=== PATIENT | female | born 1990 | race American Indian/Alaskan Native ===

== ENCOUNTER 2019-05-16 11:23 | Emergency (ER) | payer OTHER ==
[2019-05-16 11:28] VITALS: BP 113/78
--- NOTE | 2019-05-16 11:35 | Emergency Department Report ---
Chief Complaint: Back Pain/Injury Stated Complaint: BACK PAIN Time Seen by Provider: 05/16/19 11:28 - HPI History of Present Illness: This is a 28 y.o. F. that presents to the ER with back pain. Patient states she injured her left upper back at work Sunday and sent to a Workman's Comp doctor and prescribed NSAIDs and muscle relaxers. Patient states she was diagnosed with a sprained back and x-rays where normal. Patient states she felt better taking medication but reports pain is worse across her entire upper back because she is using her RUE more than usual. 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 Patient states she is scheduled for PT and told her job she didn't want to come to the ER but brought here anyway. Denies numbness, tingling, change in urinary/bowel pattern, chest pain, radiating pain, swelling, bruising, or deformity. - ROS Review of Systems: Neck: bilateral neck pain - Exam Vital Signs: Vital Signs 05/16/19 11:27 Temperature 97.9 F Pulse Rate 63 Respiratory 16 Rate Blood Pressure 113/78 O2 Sat by Pulse 100 Oximetry Physical Exam: Neck: muscle spasm palpated right trapezium muscle, no midline tenderness, no step off, no obvious deformity. MSE screening note: Focused history and physical exam performed. Due to findings the following was ordered: ED Medical Decision Making - Medical Decision Making This is a 28 y.o. F. that presents with upper back pain. Patient states pain has resolved. A muscle spasm was palpated at right trapezium muscle, no midline tenderness, no step off, no obvious deformity. Patient is under workman's comp doctor for injuring left cervical spine this week. This is a non-emergent complaint. Instructed to continue taking NSAIDs and muscle relaxers prescribed by workman's comp. Keep scheduled appointment with PT. Patient given strict return instructions. Patient discharged home stable. [place] [facility] [place] MED SCREENING EXAM-LEFT Is pt being admited?: No Condition: Stable Instructions: Arthralgia (ED) Additional Instructions: Return to the ER with worsening symptoms such as change in urinary or bowel pattern, numbness or tingling, and uncontrollable pain. Referrals: GEO GONZALES MD [Staff Physician] - 3-5 Days KENTRELL REYES MD [Staff Physician] - 3-5 Days AIDEE MARTINEZ MD [Staff Physician] - 3-5 Days [facility] [Outside] - 3-5 Days Forms: Work/School Release Form(ED), Accompanied Note Time of Disposition: 11:46
--- NOTE | 2019-05-16 13:02 | Emergency Department Report ---
ED Back Pain/Injury HPI - General Chief Complaint: Back Pain/Injury Stated Complaint: BACK PAIN Time Seen by Provider: 05/16/19 11:28 Source: patient, EMS Limitations: No Limitations - History of Present Illness Initial Comments: This is a 28 y.o. F. that presents to the ER with back pain. Patient states she injured her left upper back at work Sunday and sent to a Workman's Comp doctor and prescribed NSAIDs and muscle relaxers. Patient states she was diagnosed with a sprained back and x-rays where normal. Patient states she felt better taking medication but reports pain is worse across her entire upper back because she is using her RUE more than usual. 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 Patient states she is scheduled for PT and told her job she didn't want to come to the ER but brought here anyway. Denies numbness, tingling, change in urinary/bowel pattern, chest pain, radiating pain, swelling, bruising, or deformity. MD Complaint: back pain Onset/Timin -: days(s) Similar Symptoms Previously: Yes Place: work Radiation: none Severity: mild Severity scale (0 -10): 0 Quality: aching Consistency: now resolved Associated Symptoms: denies: numbness, difficulty urinating, incontinence, fever/chills Treatments Prior to Arrival: NSAIDS, other (muscle relaxer) - Related Data Allergies Allergy/AdvReac Type Severity Reaction Status Date / Time sulfamethoxazole Allergy Unknown Verified 05/16/19 11:27 [From Bactrim] trimethoprim [From Bactrim] Allergy Unknown Verified 05/16/19 11:27 meperidine [From Demerol] AdvReac Unknown Verified 05/16/19 11:34 ED Review of Systems ROS: Stated complaint: BACK PAIN Other details as noted in HPI Constitutional: denies: chills, fever Respiratory: denies: cough, shortness of breath, wheezing Cardiovascular: denies: chest pain, palpitations Musculoskeletal: back pain (upper back pain). denies: joint swelling, arthralgia Skin: denies: rash, lesions Neurological: denies: headache, weakness, paresthesias Psychiatric: denies: anxiety, depression ED Back Pain Physical Exam - Exam General: Vital signs noted. No distress. Alert and acting appropriately. Back/Abdomen: Yes Perilumbar Tenderness (muscle spasm palpated right trapezium muscle, no midline tenderness, no step off, no obvious deformity.), No Abdominal Tenderness, No Perithoracic Tenderness, No Sacroiliac Tenderness, No Flank Tenderness, No Straight Leg Raise Pain Neuro: Yes Normal Sensation, Yes Normal DTR's, Yes Normal Gait, No Motor Weakness ED Course Vital Signs 05/16/19 11:27 Temperature 97.9 F Pulse Rate 63 Respiratory 16 Rate Blood Pressure 113/78 O2 Sat by Pulse 100 Oximetry ED Medical Decision Making - Lab Data Lab Results 05/16/19 Range/Units Unknown Urine Opiates Screen Presumptive negative Urine Methadone Screen Presumptive negative Ur Barbiturates Screen Presumptive negative Ur Phencyclidine Scrn Presumptive negative Ur Amphetamines Screen Presumptive negative U Benzodiazepines Scrn Presumptive negative Urine Cocaine Screen Presumptive negative U Marijuana (THC) Screen Presumptive negative Drugs of Abuse Note Disclamer - Medical Decision Making This is a 28 y.o. F. that presents with upper back pain. Patient states pain has resolved. A muscle spasm was palpated at right trapezium muscle, no midline tenderness, no step off, no obvious deformity. Patient is under [employer] comp doctor for injuring left cervical spine this week. This is a non-emergent complaint. Patient job requested drug screen for clearance to return back to work. UDS obtained and negative. Instructed to continue taking NSAIDs and muscle relaxers prescribed by [employer] comp. Keep scheduled appointment with PT. Patient given strict return instructions. Patient discharged home stable. Critical care attestation.: If time is entered above; I have spent that time in minutes in the direct care of this critically ill patient, excluding procedure time. ED Disposition Clinical Impression: Back pain due to injury, Cervical paraspinal muscle spasm Disposition: -01 TO HOME OR SELFCARE Is pt being admited?: No Condition: Stable Instructions: Arthralgia (ED), Muscle Spasm (ED) Additional Instructions: Return to the ER with worsening symptoms such as change in urinary or bowel pattern, numbness or tingling, and uncontrollable pain. Referrals: [facility] [Outside] - 3-5 Days GEO GONZALES MD [Staff Physician] - 3-5 Days AIDEE MARTINEZ MD [Staff Physician] - 3-5 Days KENTRELL REYES MD [Staff Physician] - 3-5 Days Forms: Accompanied Note, Work/School Release Form(ED) Time of Disposition: 13:31
[2019-05-16 13:18] LABS: Amphetamine Screen,Urine PRESUMPTIVE NEGATIVE; Benzodiazepines Screen,Urine PRESUMPTIVE NEGATIVE; Cannabinoid Screen,Urine PRESUMPTIVE NEGATIVE; Cocaine Screen,Urine PRESUMPTIVE NEGATIVE; Methadone Screen,Urine PRESUMPTIVE NEGATIVE; Opiate Screen,Urine PRESUMPTIVE NEGATIVE
== END 2019-05-16 13:34 | disposition home or self-care (01) ==
LOC: ED 11:23
DX: M54.6 Pain in thoracic spine (principal); M62.838 Other muscle spasm
CPT/HCPCS: 80307; 99283

== ENCOUNTER 2019-06-24 15:57 | Emergency (ER) | payer OTHER ==
[2019-06-24 16:49] VITALS: BP 118/76
--- NOTE | 2019-06-24 16:57 | Emergency Department Report ---
ED ENT HPI - General Chief complaint: Sore Throat Stated complaint: TONSILS SWELLING/CELINA Time Seen by Provider: 06/24/19 16:50 Source: patient Mode of arrival: Ambulatory Limitations: No Limitations - History of Present Illness Initial comments: This is a 28-year-old female nontoxic well in appearance with no signs of distress presents to the ED with complaint of sore throat. Patient denies any drooling or hoarseness. Patient denies any other symptoms. Denies any fever, chills, headache, nausea, vomiting, chest pain or SOB. Denies any other comp laints. MD complaint: sore throat -: days(s) Location: throat Severity: mild Severity scale (0 -10): 8 Quality: aching Consistency: constant Improves with: none Worsens with: swallowing Associated Symptoms: pain with swallowing, sore throat. denies: fever, cough, gum swelling, toothache, tinnitus, hearing loss, discharge from ear, rhinorrhea - Related Data Previous Rx's Medication Instructions Recorded Last Taken Type Amoxicillin/K Clav Tab [Augmentin 1 tab PO Q12HR #20 tab 06/24/19 Unknown Rx 875 mg] Ibuprofen [Motrin] 600 mg PO Q8H PRN #20 tablet 06/24/19 Unknown Rx Nystas/Diphen/Xyl Visc/Mylanta 15 ml MM Q6H PRN 5 Days ml 06/24/19 Unknown Rx [Magic Mouthwash] Allergies Allergy/AdvReac Type Severity Reaction Status Date / Time sulfamethoxazole Allergy Unknown Verified 05/16/19 11:27 [From Bactrim] trimethoprim [From Bactrim] Allergy Unknown Verified 05/16/19 11:27 meperidine [From Demerol] AdvReac Unknown Verified 05/16/19 11:34 ED Dental HPI - General Chief complaint: Sore Throat Stated complaint: TONSILS SWELLING/CELINA Time Seen by Provider: 06/24/19 16:50 Source: patient Mode of arrival: Ambulatory Limitations: No Limitations - Related Data Previous Rx's Medication Instructions Recorded Last Taken Type Amoxicillin/K Clav Tab [Augmentin 1 tab PO Q12HR #20 tab 06/24/19 Unknown Rx 875 mg] Ibuprofen [Motrin] 600 mg PO Q8H PRN #20 tablet 06/24/19 Unknown Rx Nystas/Diphen/Xyl Visc/Mylanta 15 ml MM Q6H PRN 5 Days ml 06/24/19 Unknown Rx [Magic Mouthwash] Allergies Allergy/AdvReac Type Severity Reaction Status Date / Time sulfamethoxazole Allergy Unknown Verified 05/16/19 11:27 [From Bactrim] trimethoprim [From Bactrim] Allergy Unknown Verified 05/16/19 11:27 meperidine [From Demerol] AdvReac Unknown Verified 05/16/19 11:34 ED Review of Systems ROS: Stated complaint: TONSILS SWELLING/CELINA Other details as noted in HPI Constitutional: denies: chills, fever Eyes: denies: eye pain, eye discharge, vision change ENT: throat pain. denies: ear pain Respiratory: denies: cough, shortness of breath, wheezing Cardiovascular: denies: chest pain, palpitations Endocrine: no symptoms reported Gastrointestinal: denies: abdominal pain, nausea, diarrhea Genitourinary: denies: urgency, dysuria, discharge Musculoskeletal: denies: back pain, joint swelling, arthralgia Skin: denies: rash, lesions Neurological: denies: headache, weakness, paresthesias Psychiatric: denies: anxiety, depression Hematological/Lymphatic: denies: easy bleeding, easy bruising ED Past Medical Hx - Past Medical History Previous Medical History?: Yes Hx Asthma: Yes - Surgical History Past Surgical History?: Yes Additional Surgical History: Left Ectopic - Social History Smoking Status: Never Smoker - Medications Home Medications: Home Medications Medication Instructions Recorded Confirmed Last Taken Type Amoxicillin/K Clav Tab [Augmentin 1 tab PO Q12HR #20 tab 06/24/19 Unknown Rx 875 mg] Ibuprofen [Motrin] 600 mg PO Q8H PRN #20 tablet 06/24/19 Unknown Rx Nystas/Diphen/Xyl Visc/Mylanta 15 ml MM Q6H PRN 5 Days ml 06/24/19 Unknown Rx [Magic Mouthwash] ED Physical Exam - General Limitations: No Limitations General appearance: alert, in no apparent distress - Head Head exam: Present: atraumatic, normocephalic - Expanded ENT Exam Expanded Ear exam: Present: normal external inspection Mouth exam: Present: normal external inspection. Absent: drooling, trismus, muffled voice Teeth exam: Present: normal inspection Throat exam: Positive: tonsillar erythema, tonsillomegaly (2+), tonsillar exudate, other (uvula midline). Negative: R peritonsillar mass, L peritonsillar mass - Neck Neck exam: Present: normal inspection, full ROM. Absent: tenderness, meningismus, lymphadenopathy - Respiratory Respiratory exam: Present: normal lung sounds bilaterally. Absent: respiratory distress, wheezes, rales, rhonchi, stridor, chest wall tenderness, accessory muscle use, decreased breath sounds, prolonged expiratory - Cardiovascular Cardiovascular Exam: Present: regular rate, normal rhythm, normal heart sounds. Absent: irregular rhythm, systolic murmur, diastolic murmur, rubs, gallop - Extremities Exam Extremities exam: Present: full ROM - Back Exam Back exam: Present: full ROM - Neurological Exam Neurological exam: Present: alert, oriented X3, normal gait - Skin Skin exam: Present: warm, dry, intact, normal color. Absent: rash ED Course Vital Signs 06/24/19 06/24/19 16:48 16:49 Temperature 99.0 F Pulse Rate 110 H Respiratory 20 Rate Blood Pressure 118/76 O2 Sat by Pulse 100 Oximetry - Reevaluation(s) Reevaluation #1: 06/24/19 16:53 Patient is speaking in full sentences with no signs of distress noted. ED Medical Decision Making - Medical Decision Making Patient was instructed to Follow-up with a primary care doctor in 3-5 days or if symptoms worsen and continue return to emergency room as soon as possible. At time of discharge, the patient does not seem toxic or ill in appearance. No acute signs of distress noted. Patient agrees to discharge treatment plan of care. No further questions noted by the patient. Critical care attestation.: If time is entered above; I have spent that time in minutes in the direct care of this critically ill patient, excluding procedure time. ED Disposition Clinical Impression: Tonsillitis with exudate Disposition: DC-01 TO HOME OR SELFCARE Is pt being admited?: No Does the pt Need Aspirin: No Condition: Stable Instructions: Tonsillitis (ED) Additional Instructions: Follow-up with a primary care doctor in 3-5 days or if symptoms worsen and continue return to emergency room as soon as possible. Prescriptions: Amoxicillin/K Clav Tab [Augmentin 875 mg] 1 tab PO Q12HR #20 tab Nystas/Diphen/Xyl Visc/Mylanta [Magic Mouthwash] 15 ml MM Q6H PRN 5 Days ml PRN Reason: Sore Throat Ibuprofen [Motrin] 600 mg PO Q8H PRN #20 tablet PRN Reason: Pain Referrals: PRIMARY CAREMD [Referring] - 3-5 Days GEO GONZALES MD [Staff Physician] - 3-5 Days Forms: Work/School Release Form(ED)
== END 2019-06-24 22:40 | disposition home or self-care (01) ==
LOC: ED 15:57
DX: J03.80 Acute tonsillitis due to other specified organisms (principal); J45.909 Unspecified asthma, uncomplicated; Z98.890 Other specified postprocedural states; Z79.1 Long term (current) use of non-steroidal anti-inflammatories (NSAID); Z79.2 Long term (current) use of antibiotics; Z79.899 Other long term (current) drug therapy
CPT/HCPCS: 99282

== ENCOUNTER 2020-02-05 15:51 | Emergency (ER) | payer OTHER ==
[2020-02-05 16:36] VITALS: BP 109/68
[2020-02-05] MEDS ORDERED: oxyCODONE /ACETAMINOPHEN 5-325MG TAB PO ONE (20:37)
[2020-02-05] MEDS ORDERED: DIPHtheria,PERTUSSIS(ACELL),TETANUS VACCINE/PF 0.5 ML VIAL IM ONE (20:37)
--- NOTE | 2020-02-05 21:25 | XRay Report ---
LEFT FINGER(S) 3 VIEW(S) INDICATION / CLINICAL INFORMATION: slammed finger in door, distal pain/swelling COMPARISON: None available. FINDINGS: BONES / JOINT(S): Tiny ossific fragments at the distal long finger (third finger) terminal tuft likel y representing tiny acute chip fractures. No large displaced fracture. No dislocation. No significant arthritis. SOFT TISSUES: Moderate swelling at the distal long finger. ADDITIONAL FINDINGS: None. IMPRESSION: 1. Tiny chip fractures at the terminal tuft of the long finger (third finger) with moderate adjacent swelling. Correlate for nail bed injury. Signer Name: Gerardo Johnson MD Signed: 02/05/2020 9:21 PM Workstation Name: [id number]
[2020-02-05] MEDS ORDERED: ceFAZolin 1 GM VIAL IM ONE (21:30)
--- NOTE | 2020-02-05 21:38 | Emergency Department Report ---
ED General Adult HPI - General Chief complaint: Extremity Injury, Upper Stated complaint: LT FINGER SLAMMED IN DOOR Time Seen by Provider: 02/05/20 20:10 Source: patient Mode of arrival: Ambulatory Limitations: No Limitations - History of Present Illness Initial comments: 29-year-old -[place] female presents with complaints of left finger pain and laceration after slamming her finger in a door today. She rates her pain as 10/10 in severity and describes the pain as throbbing. She is unsure of her last tetanus vaccination. She denies any numbness/tingling/weakness or decreased range of motion of the finger. Severity scale (0 -10): 9 - Related Data Previous Rx's Medication Instructions Recorded Last Taken Type Amoxicillin/K Clav Tab [Augmentin 1 tab PO Q12HR #20 tab 06/24/19 Unknown Rx 875 mg] Ibuprofen [Motrin] 600 mg PO Q8H PRN #20 tablet 06/24/19 Unknown Rx Nystas/Diphen/Xyl Visc/Mylanta 15 ml MM Q6H PRN 5 Days ml 06/24/19 Unknown Rx [Magic Mouthwash] Acetaminophen/Codeine [Tylenol 1 tab PO Q6H PRN #8 tab 02/05/20 Unknown Rx /Codeine # 3 tab] Ibuprofen [Motrin 800 MG tab] 800 mg PO Q8HR PRN #20 tablet 02/05/20 Unknown Rx cephALEXin [Keflex] 500 mg PO Q8HR 7 Days #21 cap 02/05/20 Unknown Rx Allergies Allergy/AdvReac Type Severity Reaction Status Date / Time sulfamethoxazole Allergy Unknown Verified 05/16/19 11:27 [From Bactrim] trimethoprim [From Bactrim] Allergy Unknown Verified 05/16/19 11:27 meperidine [From Demerol] AdvReac Unknown Verified 05/16/19 11:34 ED Review of Systems ROS: Stated complaint: LT FINGER SLAMMED IN DOOR Other details as noted in HPI ED Past Medical Hx - Past Medical History Hx Asthma: Yes - Surgical History Additional Surgical History: Left Ectopic - Social History Smoking Status: Never Smoker - Medications Home Medications: Home Medications Medication Instructions Recorded Confirmed Last Taken Type Amoxicillin/K Clav Tab [Augmentin 1 tab PO Q12HR #20 tab 06/24/19 Unknown Rx 875 mg] Ibuprofen [Motrin] 600 mg PO Q8H PRN #20 tablet 06/24/19 Unknown Rx Nystas/Diphen/Xyl Visc/Mylanta 15 ml MM Q6H PRN 5 Days ml 06/24/19 Unknown Rx [Magic Mouthwash] Acetaminophen/Codeine [Tylenol 1 tab PO Q6H PRN #8 tab 02/05/20 Unknown Rx /Codeine # 3 tab] Ibuprofen [Motrin 800 MG tab] 800 mg PO Q8HR PRN #20 tablet 02/05/20 Unknown Rx cephALEXin [Keflex] 500 mg PO Q8HR 7 Days #21 cap 02/05/20 Unknown Rx ED Physical Exam - General Limitations: No Limitations General appearance: alert, in no apparent distress - Head Head exam: Present: atraumatic, normocephalic - Respiratory Respiratory exam: Absent: respiratory distress - Cardiovascular Cardiovascular Exam: Present: regular rate - Extremities Exam Extremities exam: Present: other (Bruising and mild swelling noted to distal aspect of left middle finger with a small less than 1 cm laceration noted. No obvious foreign bodies. Nail is intact.) - Neurological Exam Neurological exam: Present: alert, oriented X3 - Psychiatric Psychiatric exam: Present: normal affect, normal mood - Skin Skin exam: Present: warm, dry, normal color, ecchymosis. Absent: rash ED Course Vital Signs 02/05/20 16:32 Temperature 98.7 F Pulse Rate 74 Respiratory 18 Rate Blood Pressure 109/68 O2 Sat by Pulse 99 Oximetry - Laceration /Wound Repair Finger Wound Length (cm): 1 Wound's Depth, Shape: linear Wound Explored: no foreign body removed Irrigated w/ Saline (ccs): 100 (Betadine mix) Betadine Prep?: Yes Anesthesia: 1% Lidocaine Volume Anesthetic (ccs): 1 Wound Repaired With: sutures Suture Size/Type: 5:0, proline Number of Sutures: 1 (Simple interrupted) Sterile Dressing Applied?: Yes Progress: Minimal bleeding occurred. Patient tolerated procedure well without any immediate complications. Normal perfusion and range of motion of the finger n oted post procedure ED Medical Decision Making - Radiology Data Radiology results: report reviewed LEFT FINGER(S) 3 VIEW(S) INDICATION / CLINICAL INFORMATION: slammed finger in door, distal pain/swelling COMPARISON: None available. FINDINGS: BONES / JOINT(S): Tiny ossific fragments at the distal long finger (third finger) terminal tuft likely representing tiny acute chip fractures. No large displaced fracture. No dislocation. No significant arthritis. SOFT TISSUES: Moderate swelling at the distal long finger. ADDITIONAL FINDINGS: None. IMPRESSION: 1. Tiny chip fractures at the terminal tuft of the long finger (third finger) with moderate adjacent swelling. Correlate for nail bed injury. - Medical Decision Making 29-year-old -[place] female presents with complaints of left finger pain and laceration after slamming her finger in a door today. She rates her pain as 10/10 in severity and describes the pain as throbbing. She is unsure of her last tetanus vaccination. She denies any numbness/tingling/weakness or decreased range of motion of the finger. X-ray shows distal tuft fracture. Patient given Ancef for open fracture. Prescription for Keflex given for home. Laceration repaired without any immediate complications. Patient to follow-up with with orthopedics within 3 days. Discussed wound care, signs and symptoms of infection, and strict return precautions in great detail with patient who verbalizes understanding. Her vitals are normal, she is well-appearing, she is stable for discharge home. Critical care attestation.: If time is entered above; I have spent that time in minutes in the direct care of this critically ill patient, excluding procedure time. ED Disposition Clinical Impression: Open fracture of tuft of distal phalanx of finger Disposition: - TO HOME OR SELFCARE Is pt being admited?: No Condition: Stable Instructions: Suture Care (ED), Laceration (ED), Finger Fracture (ED), Hand Fracture (ED) Prescriptions: cephALEXin [Keflex] 500 mg PO Q8HR 7 Days #21 cap Ibuprofen [Motrin 800 MG tab] 800 mg PO Q8HR PRN #20 tablet PRN Reason: Pain, Moderate (4-6) Acetaminophen/Codeine [Tylenol /Codeine # 3 tab] 1 tab PO Q6H PRN #8 tab PRN Reason: Pain , Severe (7-10) Referrals: [facility] [Provider Group] - 2-3 Days
[2020-02-05] MEDS ORDERED: BACITRACIN ZINC OINT 28.4 GM TP ONE (22:15)
== END 2020-02-05 22:45 | disposition home or self-care (01) ==
LOC: ED 15:51
DX: S62.633B Displaced fracture of distal phalanx of left middle finger, initial encounter for open fracture (principal); J45.909 Unspecified asthma, uncomplicated; Z98.890 Other specified postprocedural states; Z79.1 Long term (current) use of non-steroidal anti-inflammatories (NSAID); Z79.2 Long term (current) use of antibiotics; Z79.899 Other long term (current) drug therapy; Z88.8 Allergy status to other drugs, medicaments and biological substances; X58.XXXA Exposure to other specified factors, initial encounter; Y93.89 Activity, other specified; Y92.89 Other specified places as the place of occurrence of the external cause; Y99.8 Other external cause status
CPT/HCPCS: 12001; 73140; 90471; 90715; 96372; 99283; J0690

== ENCOUNTER 2021-08-11 07:27 | Emergency (ER) | payer OTHER ==
[2021-08-11] MEDS ORDERED: LIDOCAINE (1%) 10 MG/1 ML VIAL 20 ML MDV INFILTRATI ONE (10:51)
[2021-08-11] MEDS ORDERED: HYDROcodone/ACETAMINOPHEN 10-325MG TAB PO ONE (10:54)
[2021-08-11] MEDS ORDERED: TETANUS,DIPH,PERTUSS(ACELL) VACCINE 0.5 ML SYRINGE IM ONE (12:05)
--- NOTE | 2021-08-11 12:06 | Emergency Department Report ---
- General Chief Complaint: Laceration/Recheck/Suture Stated Complaint: RT HAND INJURY Source: patient Mode of arrival: Ambulatory Limitations: No Limitations - History of Present Illness Initial Comments: 30-year-old female presents to the ED with a laceration to the right pinky finger. Patient states that she was cutting up some while melena when she accidentally cut her right middle finger. Bleeding is controlled with bandage. She is able to move finger without any difficulty. No foreign object is noted into the wound, she states pain is a 10 out of 10 patient is currently crying. Patient is alert and oriented x3. No acute distress noted .No obvious deformity noted. No obvious edema noted .No distracting injury noted. - Related Data Previous Rx's Medication Instructions Recorded Last Taken Type Amoxicillin/K Clav Tab [Augmentin 1 tab PO Q12HR #20 tab 06/24/19 Unknown Rx 875 mg] Ibuprofen [Motrin] 600 mg PO Q8H PRN #20 tablet 06/24/19 Unknown Rx Nystas/Diphen/Xyl Visc/Mylanta 15 ml MM Q6H PRN 5 Days ml 06/24/19 Unknown Rx [Magic Mouthwash] Acetaminophen/Codeine [Tylenol 1 tab PO Q6H PRN #8 tab 02/05/20 Unknown Rx /Codeine # 3 tab] Ibuprofen [Motrin 800 MG tab] 800 mg PO Q8HR PRN #20 tablet 02/05/20 Unknown Rx cephALEXin [Keflex] 500 mg PO Q8HR 7 Days #21 cap 02/05/20 Unknown Rx Ibuprofen [Motrin] 800 mg PO Q8HR PRN 15 Days #30 08/11/21 Unknown Rx tablet cephALEXin [Keflex] 500 mg PO Q12HR 5 Days #10 cap 08/11/21 Unknown Rx Allergies Allergy/AdvReac Type Severity Reaction Status Date / Time sulfamethoxazole Allergy Mild Unknown Verified 08/11/21 07:40 [From Bactrim] trimethoprim [From Bactrim] Allergy Unknown Verified 05/16/19 11:27 meperidine [From Demerol] AdvReac Unknown Verified 05/16/19 11:34 ED Review of Systems ROS: Stated complaint: RT HAND INJURY Other details as noted in HPI Constitutional: denies: chills, fever Eyes: denies: eye pain, eye discharge, vision change ENT: denies: ear pain, throat pain Respiratory: denies: cough, shortness of breath, wheezing Cardiovascular: denies: chest pain, palpitations Endocrine: no symptoms reported Gastrointestinal: denies: abdominal pain, nausea, diarrhea Genitourinary: denies: urgency, dysuria, discharge Musculoskeletal: denies: back pain, joint swelling, arthralgia Skin: other (Laceration). denies: rash, lesions Neurological: denies: headache, weakness, paresthesias Psychiatric: denies: anxiety, depression Hematological/Lymphatic: denies: easy bleeding, easy bruising ED Past Medical Hx - Past Medical History Previous Medical History?: No Hx Asthma: Yes - Surgical History Past Surgical History?: Yes Additional Surgical History: Left Ectopic - Social History Smoking Status: Never Smoker Substance Use Type: None - Medications Home Medications: Home Medications Medication Instructions Recorded Confirmed Last Taken Type Amoxicillin/K Clav Tab [Augmentin 1 tab PO Q12HR #20 tab 06/24/19 Unknown Rx 875 mg] Ibuprofen [Motrin] 600 mg PO Q8H PRN #20 tablet 06/24/19 Unknown Rx Nystas/Diphen/Xyl Visc/Mylanta 15 ml MM Q6H PRN 5 Days ml 06/24/19 Unknown Rx [Magic Mouthwash] Acetaminophen/Codeine [Tylenol 1 tab PO Q6H PRN #8 tab 02/05/20 Unknown Rx /Codeine # 3 tab] Ibuprofen [Motrin 800 MG tab] 800 mg PO Q8HR PRN #20 tablet 02/05/20 Unknown Rx cephALEXin [Keflex] 500 mg PO Q8HR 7 Days #21 cap 02/05/20 Unknown Rx Ibuprofen [Motrin] 800 mg PO Q8HR PRN 15 Days #30 08/11/21 Unknown Rx tablet cephALEXin [Keflex] 500 mg PO Q12HR 5 Days #10 cap 08/11/21 Unknown Rx ED Physical Exam - General Limitations: No Limitations General appearance: alert, in no apparent distress - Head Head exam: Present: atraumatic, normocephalic - Eye Eye exam: Present: normal appearance - ENT ENT exam: Present: mucous membranes moist - Neck Neck exam: Present: normal inspection - Respiratory Respiratory exam: Present: normal lung sounds bilaterally. Absent: respiratory distress - Cardiovascular Cardiovascular Exam: Present: regular rate, normal rhythm. Absent: systolic murmur, diastolic murmur, rubs, gallop - GI/Abdominal GI/Abdominal exam: Present: soft, normal bowel sounds - Extremities Exam Extremities exam: Present: normal inspection - Back Exam Back exam: Present: normal inspection - Neurological Exam Neurological exam: Present: alert, oriented X3 - Psychiatric Psychiatric exam: Present: normal affect, normal mood - Skin Skin exam: Present: warm, dry, intact, normal color, rash, other (Laceration noted to the left pinky) ED Course Vital Signs 08/11/21 08/11/21 08/11/21 07:32 10:49 13:03 Temperature 98.2 F 98.5 F Pulse Rate 72 85 Respiratory 15 16 Rate Blood Pressure 113/67 126/87 [Right] O2 Sat by Pulse 100 99 98 Oximetry - Laceration /Wound Repair Right Finger Wound Length (cm): 1 Wound's Depth, Shape: superficial Wound Explored: clean Irrigated w/ Saline (ccs): 100 Betadine Prep?: Yes Anesthesia: 1% Lidocaine Volume Anesthetic (ccs): 6 Wound Debrided: minimal Wound Repaired With: sutures Suture Size/Type: 4:0 Number of Sutures: 3 Layer Closure?: No Sterile Dressing Applied?: Yes Progress: Tolerated procedure well splint applied ED Medical Decision Making - Medical Decision Making 30-year-old female presents to the ED with a laceration to the right pinky finger. Patient states that she was cutting up some while melena when she accidentally cut her right middle finger. Bleeding is controlled with bandage. She is able to move finger without any difficulty. No foreign object is noted into the wound, she states pain is a 10 out of 10 patient is currently crying. Patient is alert and oriented x3. No acute distress noted .No obvious deformity noted. No obvious edema noted .No distracting injury noted. 3 simple sutures placed into the right pinky finger and splint applied to the finger. 1 cm lag noted. Patient to return in 10 days to have simple suture removal. Rechecked the patient is resting quietly quietly and comfortable and feeling better. I discussed the results of diagnostic study, my clinical impression and the plan for further treatment with the patient. Patient agrees with plan and discharge at this present time. All question addressed. I have given the patient instruction regarding a diagnosis ,expectation ,follow- up and return precaution. I explained to the patient that emergent condition may arise and to return to the ED for new worsen and any new persisting condition. I have explained the importance of following up with the primary care physician or referral physician listed below has instructed. The patient verbalized understanding of discharge instruction. Critical care attestation.: If time is entered above; I have spent that time in minutes in the direct care of this critically ill patient, excluding procedure time. ED Disposition Clinical Impression: Laceration Disposition: HOME / SELF CARE / HOMELESS Is pt being admited?: No Does the pt Need Aspirin: No Condition: Stable Instructions: Laceration Care, Adult Additional Instructions: return to have sutures removed out in 10 days Keep sutures clean and dry Prescriptions: cephALEXin [Keflex] 500 mg PO Q12HR 5 Days #10 cap Ibuprofen [Motrin] 800 mg PO Q8HR PRN 15 Days #30 tablet PRN Reason: Pain, Moderate (4-6) Referrals: PRIMARY CARE, [Primary Care Provider] - 3-5 Days [facility] [Provider Group] - 3-5 Days Forms: Work/School Release Form(ED)
[2021-08-11 13:04] VITALS: BP 126/87
== END 2021-08-11 13:03 | disposition home or self-care (01) ==
LOC: ED 07:27
DX: S61.216A Laceration without foreign body of right little finger without damage to nail, initial encounter (principal); W45.8XXA Other foreign body or object entering through skin, initial encounter; Y93.89 Activity, other specified; Y92.89 Other specified places as the place of occurrence of the external cause; Y99.8 Other external cause status
CPT/HCPCS: 90471; 90715; 99282

== ENCOUNTER 2021-10-24 19:09 | Emergency (ER) | payer OTHER ==
[2021-10-24 19:26] VITALS: BP 131/77
== END 2021-10-24 21:19 | disposition left against medical advice (07) ==
LOC: ED 19:09
DX: T18.5XXA Foreign body in anus and rectum, initial encounter (principal); Z53.21 Procedure and treatment not carried out due to patient leaving prior to being seen by health care provider; X58.XXXA Exposure to other specified factors, initial encounter; Y93.89 Activity, other specified; Y92.89 Other specified places as the place of occurrence of the external cause; Y99.8 Other external cause status